=== PATIENT | female | born 1940 | race Caucasian/White ===

== ENCOUNTER 2018-02-04 18:09 | Emergency (ER) | payer MEDICARE ==
[2018-02-04 18:45] LABS: Mean Corpuscular HGB CONC 34.1 g/dL (32.0-36.0); Mean Corpuscular Hemoglobin 31.3 pg (27.0-31.0); Mean Corpuscular Volume 91.6 fL (78.0-98.0); Mean Platelet Volume 5.6 fL (7.4-10.4); Platelet Count 336 thou/uL (130-400); RBC Distribution Width 12.8 % (11.5-14.5); Red Blood Cell (RBC) Count 4.79 mill/uL (4.20-5.40); White Blood Cell (WBC) Count 18.6 thou/uL (4.8-10.8)
[2018-02-04 19:00] LABS: Band 3 % (5-11); Eosinophils 2 % (0-10); Lymphocytes 6 % (21-51); MDiff Complete? YES; Monocytes 1 % (0-10); Neutrophil 88 % (42-75); PLT Morphology Comment Appears Adequate
[2018-02-04 19:03] LABS: ALT (SGPT) 13 U/L (8-55); AST (SGOT) 17 U/L (5-34); Albumin 4.1 g/dL (3.4-4.8); Alkaline Phosphatase 94 U/L (40-150); Anion Gap 14 mmol/L (10-20); BUN (Urea Nitrogen) 12 mg/dL (9.8-20.1); Bilirubin, Total 0.8 mg/dL (0.2-1.2); Calc. Creatinine Clearance 0 mL/min (70-130); Calcium 9.6 mg/dL (7.8-10.44); Carbon Dioxide 28 mmol/L (23-31); Chloride 93 mmol/L (98-107); Estimated GFR-MDRD 66; Globulin 2.9 g/dL (2.4-3.5); Glucose 134 mg/dL (83-110); Potassium 3.7 mmol/L (3.5-5.1); Sodium 131 mmol/L (136-145)
[2018-02-04] MEDS ORDERED: methylPREDNISolone Sod Succ/PF 125 MG/2 ML VIAL ONE (19:19)
--- NOTE | 2018-02-04 19:20 | RAD ---
PORTABLE AP CHEST X-RAY 02/04/18 HISTORY: Shortness of breath. COMPARISON: None available. FINDINGS: The cardiac silhouette is magnified by projection. Pulmonary vasculature is within normal limits. A f ew scattered linear densities are seen within the mid lung zones bilaterally as well as at each lung base which may be related to mild areas of scarring and/or atelectasis. No focal consolidation or ple ural fluid is seen. vascular calcifications are seen in a tortuous thoracic aorta. There is bilateral glenohumeral osteoarthropathy with degenerative changes in the spine. IMPRESSION: 1. No acute cardiopulmonary process. 2. Areas of mild scarring and/or atelectasis within the lungs. POS: [facility]
[2018-02-04 19:40] LABS: CKMB 2.1 ng/mL (0-6.6); Troponin I 0.011 ng/mL (< 0.028)
--- NOTE | 2018-02-04 21:26 | CT ---
CT ANGIOGRAM THORAX WITH IV CONTRAST AND 3D RECONSTRUCTIONS: 02/04/18 HISTORY: Dyspnea and shortness of breath. FINDINGS: No filling defects are seen in the pulmonary arteries to suggest a pulmonary embolus. Atherosclerotic vascular calcifications are seen in the coronary arteries as well as involving the th oracic aorta. There is mild irregular atherosclerotic plaque within the thoracic aorta. However the t horacic aorta is normal in caliber without evidence of an aortic dissection. There are linear densities seen within the lingula and to a lesser extent at each lung base which may be related to areas of mild scarring and/or atelectasis. No discrete pulmonary nodule, mass or pleur al effusion is identified. Images of the upper abdomen demonstrate a right adrenal nodule measuring 2.2 cm. This is stable in si ze compared to a CTA of the abdomen on 07/02/17. Calcified granuloma is seen in the spleen. Atherosclerotic plaque and calcifications are seen in the visualized proximal abdominal aorta. Degenerative changes are seen in the spine. IMPRESSION: 1. Right adrenal nodule which is difficult to characterize on this post enhanced CT scan exam. N onemergent CT abdomen following adrenal mass protocol is recommended. 2. No CT evidence of a pulmonary embolus. 3. Linear areas of scarring versus atelectasis in the lingula and right middle lobe and to a les ser extent in each lung base. 4. Atherosclerotic plaque and calcifications in the thoracic aorta and visualized proximal abdom inal aorta. 5. 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 This does not appear to represent a lymph node with mass effect on the portal vein as this had heterogeneous appearance on prior exam with similar e nhancement to the portal veins. POS: [facility]
--- NOTE | 2018-02-08 01:03 | EKG ---
Test Reason : SOB Blood Pressure : / mmHG Vent. Rate : 111 BPM Atrial Rate : 111 BPM P-R Int : 200 ms QRS Dur : 076 ms QT Int : 334 ms P-R-T Axes : 082 -51 052 degrees QTc Int : 454 ms Sinus tachycardia with Premature atrial complexes Left axis deviation Pulmonary disease pattern Septal infarct , age undetermined Nonspecific ST-T changes Abnormal ECG Confirmed by MIKE PAGAN DO ([id number]), web content editor ISI CLARKE ([id number] on 02/08/2018 1:02:28 AM Referred By: Confirmed By:MIKE PAGAN DO
== END 2018-02-04 22:37 | disposition home or self-care (01) ==
LOC: ERS 18:09
DX: J44.1 Chronic obstructive pulmonary disease with (acute) exacerbation (principal); E78.5 Hyperlipidemia, unspecified; I12.0 Hypertensive chronic kidney disease with stage 5 chronic kidney disease or end stage renal disease; N18.9 Chronic kidney disease, unspecified; F17.210 Nicotine dependence, cigarettes, uncomplicated; K58.9 Irritable bowel syndrome, unspecified; F41.9 Anxiety disorder, unspecified; Z79.82 Long term (current) use of aspirin; Z71.6 Tobacco abuse counseling; Z79.899 Other long term (current) drug therapy
CPT/HCPCS: 36415; 71045; 71275; 80053; 82553; 84484; 85025; 85379; 93005; 96374; 99406; J2930; J7620

== ENCOUNTER 2018-02-09 08:58 | Outpatient (CLI) | payer MEDICARE, OTHER | END 2018-02-09 08:59 | disposition home or self-care (01) | LOC: BICCT 08:58 → MERGE 09:30 | PROVIDERS: ATTEND Thoracic Surgery (Cardiothoracic Vascular Surgery) | DX: I72.3 Aneurysm of iliac artery (principal); I71.4 Abdominal aortic aneurysm, without rupture | CPT/HCPCS: 74176 ==